=== PATIENT | male | born 1955 | race Caucasian/White ===

== ENCOUNTER 2019-10-29 14:54 | Inpatient (IN) | payer OTHER ==
[~2019-10-29] VITALS: Ht 172.7 cm; Wt 112.9 kg
[~2019-10-29 14:54] MED LIST: ASPI-496 PO; BACL-19 PO; BIMA2.5D TP; CARV-39 PO; CEPH-376 PO; CHOL500045 PO; CYCL-259 PO; FIBER SUPPLEMENT PO; FOLI-17 PO; HUMALOG INSULIN PUMP; INSU100I28 SQ-INSULIN; INSULIN LISPRO SQ; LATANOPROST EACHEYE; LISI-167 PO; LISI40TA PO; MAGN400T26 PO; MORP60TA63 PO; OXYC5CAP2 PO; POLY17PO29 PO; PRAV80TA2 PO; THIA100T67 PO; TIMO5DRO5 EACHEYE
--- NOTE | 2019-10-29 15:27 | NUR ---
PT REPORTS HIGH BLOOD SUGAR. SPOUSE IN ROOM, ASSISTING W/ HX. 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 INSULIN PUMP: 1 UNIT Q DAY, 0.5 UNIT Q HS. NEW INFUSION STARTED YESTERDAY; SITE CHANGED FROM PRIOR SITE. CARDIAC MONITORING IN PROGRESS.
[2019-10-29] MEDS ORDERED: SODIUM CHLORIDE 0.9% 1,000ML IVBOLUS ONE ×4 (15:30→18:30)
[2019-10-29] MEDS ORDERED: SODIUM CHLORIDE FLUSH 10ML SYR IVF ONE (15:30)
[2019-10-29 15:36] LABS: BASOPHILS # (AUTO) 0.01 x10^3/uL (0-0.1); BASOPHILS % (AUTO) 0 % (0-1); EOSINOPHILS % (AUTO) 0 % (1-7); LYMPHOCYTES % (AUTO) 7 % (22-44); MD NO; MEAN CORPUSCULAR HEMOGLOBIN 30.8 pg (27.5-34.5); MEAN CORPUSCULAR VOLUME 93.3 fL (81-97); MEAN PLATELET VOLUME 9.8 fL (7.4-10.4); MONOCYTES # (AUTO) 0.92 x10^3/uL (0.2-0.8); MONOCYTES % (AUTO) 6 % (2-9); NEUTROPHILS # (AUTO) 14.22 x10^3/uL (1.8-6.8); NEUTROPHILS % (AUTO) 87 % (42-75); PLATELET COUNT 171 x10^3/uL (130-400); RED BLOOD COUNT 4.43 x10^6/uL (4.38-5.82); RED CELL DISTRIBUTION WIDTH 13.8 % (9.4-14.8)
[2019-10-29 15:38] LABS: PH, VENOUS 7.322 pH (7.320-7.420)
[2019-10-29 15:52] LABS: CHLORIDE 97 mmol/L (98-107)
--- NOTE | 2019-10-29 15:55 | NUR ---
GELY NOLEN BS FOR EXAM
[2019-10-29 16:26] LABS: ALANINE AMINOTRANSFERASE 16 U/L (12-78); ALBUMIN 3.3 g/dL (3.4-5.0); ALKALINE PHOSPHATASE 85 U/L (45-117); ANION GAP 9 mmol/L (5-15); CALCIUM 8.7 mg/dL (8.5-10.1); CREATININE 3.14 mg/dL (0.7-1.3)
[2019-10-29] MEDS ORDERED: MORPHINE SULFATE 4 MG/ML, 1ML IVPush PRN (16:30)
[2019-10-29] MEDS ORDERED: ONDANSETRON 2MG/ML, 2ML IVPush ONE (16:30)
[2019-10-29] MEDS ORDERED: INSULIN REGULAR 100 UNITS/ML, 3ML VIAL IVPush ONE (16:30)
--- NOTE | 2019-10-29 16:30 | NUR ---
URINAL PROVIDED TO PT.
[2019-10-29] MEDS ORDERED: ONDANSETRON 2MG/ML, 2ML ONE (16:31)
[2019-10-29] MEDS ORDERED: MORPHINE SULFATE 4 MG/ML, 1ML ONE (16:32)
[2019-10-29] MEDS ORDERED: INSULIN SINGLE DOSE, ER ONE (16:34)
--- NOTE | 2019-10-29 17:04 | NUR ---
PT STILL ATTEMPTING TO URINATE
--- NOTE | 2019-10-29 17:19 | NUR ---
2N LITER NS HUNG; IV SITE PATENT. HUMULIN GIVEN PER EMAR. PT DENIES NAUSEA AND PAIN; ZOFRAN AND MORPHINE HELD FOR NOW. PT STILL UNABLE TO PROVIDE URINE SPECIMEN; DR PLATA AWARE.
--- NOTE | 2019-10-29 17:25 | NUR ---
Jose Guadalupe nj in [facility] - 10/29/19 at 1727 by YUKO IMPRESSION: RIGHT BASAL OPACITY CONSISTENT WITH PNEUMONIA OR ATELECTASIS.
--- NOTE | 2019-10-29 17:27 | NUR ---
PT REPORT TO BREAK RN. PT CARE TRANSFERRED.
[2019-10-29 17:31] LABS: ACETONE, SERUM Negative (Negative)
[2019-10-29] MEDS ORDERED: CEFTRIAXONE PMX 1GM/50ML 50 ML IV ONE (18:00)
--- NOTE | 2019-10-29 18:04 | NUR ---
PT REPORT FROM LAURA CROSS RN. PT CARE RESUMED. PER [place] PT REFUSING STRAIGHT CATH FOR URINE SPECIMEN AND DR PLATA IS AWARE.
[2019-10-29] MEDS ORDERED: INSU1CAR16 TP (18:09)
[2019-10-29] MEDS ORDERED: ONDANSETRON 2MG/ML, 2ML IV PRN (18:30)
[2019-10-29] MEDS ORDERED: NOREPINEPHRINE 8 MG in SODIUM CHLORIDE 0.9% 242 ML IV PRN (18:30)
[2019-10-29] MEDS ORDERED: PHARMACY MAY ADJ FOR RENAL FX MC PRN (18:30)
[2019-10-29] MEDS ORDERED: ACETAMINOPHEN 325 MG TABLET PO PRN (18:30)
--- NOTE | 2019-10-29 18:34 | NUR ---
MUSEUM TECHNICIAN NOTIFIED OF PT BP. PT TO BE MOVED TO TRAUMA 03
--- NOTE | 2019-10-29 18:36 | NUR ---
TEST ENGINEERING MANAGER: PT MOVED TO 03
--- NOTE | 2019-10-29 18:48 | NUR ---
CENTRAL LINE SET-UP AND DR CHANEY AT .
--- NOTE | 2019-10-29 18:49 | NUR ---
PROCEDURE STARTED PER DR CHANEY
--- NOTE | 2019-10-29 19:05 | NUR ---
BRENDA Vargsa RN AT TO ASSUME CARE
--- NOTE | 2019-10-29 19:09 | NUR ---
PT REPORT PROVIDED TO DANIEL GUTIERREZ
[2019-10-29 19:10] LABS: ANION GAP 10 mmol/L (5-15); CALCIUM 8.2 mg/dL (8.5-10.1); CHLORIDE 106 mmol/L (98-107); CREATININE 2.85 mg/dL (0.7-1.3)
--- NOTE | 2019-10-29 19:10 | NUR ---
CENTRAL LINE OKAYED TO USE PER DR CHANEY
[2019-10-29] MEDS ORDERED: CEFTRIAXONE PMX 1GM/50ML 50 ML ONE (19:13)
--- NOTE | 2019-10-29 19:15 | NUR ---
BLD CX BAND ON WRIST
--- NOTE | 2019-10-29 19:23 | NUR ---
ASSUMED CARE OF PATIENT.
--- NOTE | 2019-10-29 19:27 | NUR ---
CALLED PM HOSPITALIST; LEFT MESSAGE FOR DR BART Villa/ BASIC PT INFORMATION & REQUESTED RETURN CALL.
--- NOTE | 2019-10-29 19:28 | NUR ---
DR ARRIAGA AT PT BS
[2019-10-29] MEDS ORDERED: PIPERACILLIN/TAZO/PMX 3.375GM 50 ML ONE (19:55)
[2019-10-29 20:07] LABS: MICROSCOPIC INDICATED
--- NOTE | 2019-10-29 20:10 | NUR ---
3RD BOLUS STILL RUNNING PT DROWSY BUT TALKING. PT IS A&O X4. VS STABLE. DO ALL OPERATOR ON. SINUS PUMA NOTED. WILL CONTINUE TO MONITOR.
--- NOTE | 2019-10-29 20:12 | NUR ---
SPOKE WITH DR ARRIAGA ABOUT SEPSIS PROTOCOL. NO SOURCE OF INFECTION AT THIS TIME. UA HAS BEEN SENT.
[2019-10-29] MEDS: PIPERACILLIN/TAZO/PMX 4.5GM 100 ML IVPB SCH (20:17)
[2019-10-29] MEDS ORDERED: DEXTROSE 50%, 50ML SYRINGE IVPush PRN (20:30)
[2019-10-29] MEDS ORDERED: GLUCAGON 1 MG IM PRN (20:30)
[2019-10-29] MEDS ORDERED: DEXTROSE 4 GM TAB.CHEW PO PRN (20:30)
[2019-10-29] MEDS ORDERED: SODIUM CHLORIDE 0.9% 1,000 ML IV SCH (20:46)
--- NOTE | 2019-10-29 20:54 | NUR ---
PT TRANSFERRED TO CCU
[2019-10-29] MEDS ORDERED: INSULIN LISPRO 100 UNITS/ML, PEN SQ-INSULIN SCH ×3 (21:00)
[2019-10-29] MEDS: SODIUM CHLORIDE FLUSH 10ML SYR IVF SCH (21:29)
[2019-10-29] MEDS: INSULIN LISPRO 100 UNITS/ML, PEN SQ-INSULIN SCH (21:30)
[2019-10-29] MEDS: FAMOTIDINE 20 MG TABLET PO SCH (21:33)
[2019-10-29] MEDS: PRAVASTATIN 40 MG TABLET PO SCH (21:33)
[2019-10-29] MEDS: HEPARIN 5,000 UNITS/ML, 1ML SQ SCH (21:34)
[2019-10-29 23:59] LABS: ANION GAP 6 mmol/L (5-15); CALCIUM 7.9 mg/dL (8.5-10.1); CHLORIDE 107 mmol/L (98-107)
[2019-10-30] VITALS: BP 119/62
[2019-10-30] MEDS: PIPERACILLIN/TAZO/PMX 4.5GM 100 ML IVPB SCH ×4 (03:37→20:21)
[2019-10-30 04:00] VITALS: BP 103/51
[2019-10-30 04:25] LABS: BASOPHILS # (AUTO) 0.02 x10^3/uL (0-0.1); BASOPHILS % (AUTO) 0 % (0-1); EOSINOPHILS # (AUTO) 0.01 x10^3/uL (0-0.4); EOSINOPHILS % (AUTO) 0 % (1-7); LYMPHOCYTES # (AUTO) 1.53 x10^3/uL (1-3.4); LYMPHOCYTES % (AUTO) 13 % (22-44); MD NO; MEAN CORPUSCULAR HEMOGLOBIN 30.3 pg (27.5-34.5); MEAN CORPUSCULAR HGB CONC 32.6 g/dL (33.2-36.2); MEAN PLATELET VOLUME 9.4 fL (7.4-10.4); MONOCYTES # (AUTO) 0.92 x10^3/uL (0.2-0.8); MONOCYTES % (AUTO) 8 % (2-9); NEUTROPHILS % (AUTO) 79 % (42-75); PLATELET COUNT 159 x10^3/uL (130-400); RED BLOOD COUNT 4.02 x10^6/uL (4.38-5.82); RED CELL DISTRIBUTION WIDTH 13.7 % (9.4-14.8)
[2019-10-30 04:30] LABS: ANION GAP 8 mmol/L (5-15); CALCIUM 7.8 mg/dL (8.5-10.1); CHLORIDE 107 mmol/L (98-107)
[2019-10-30] MEDS: HEPARIN 5,000 UNITS/ML, 1ML SQ SCH ×3 (05:46→20:33)
[2019-10-30] MEDS: INSULIN LISPRO 100 UNITS/ML, PEN SQ-INSULIN SCH ×4 (09:03→20:34)
[2019-10-30] MEDS: ASPIRIN 81 MG TABLET EC PO SCH (09:09)
[2019-10-30] MEDS: SODIUM CHLORIDE FLUSH 10ML SYR IVF SCH ×2 (09:09→20:32)
[2019-10-30] MEDS ORDERED: SODIUM CHLORIDE 0.9% 1,000 ML IV SCH ×2 (12:30→20:46)
[2019-10-30 18:29] VITALS: BP 146/78
[2019-10-30] MEDS: FAMOTIDINE 20 MG TABLET PO SCH (20:33)
[2019-10-30] MEDS: PRAVASTATIN 40 MG TABLET PO SCH (20:33)
[2019-10-30 22:31] LABS: ANION GAP 8 mmol/L (5-15); CALCIUM 8.4 mg/dL (8.5-10.1); CHLORIDE 107 mmol/L (98-107); CREATININE 1.41 mg/dL (0.7-1.3)
[2019-10-31 00:32] VITALS: BP 174/92
[2019-10-31] MEDS: PIPERACILLIN/TAZO/PMX 4.5GM 100 ML IVPB SCH ×4 (01:55→21:29)
[2019-10-31] MEDS: HEPARIN 5,000 UNITS/ML, 1ML SQ SCH ×3 (05:40→23:08)
[2019-10-31 06:25] LABS: BASOPHILS % (AUTO) 0 % (0-1); EOSINOPHILS % (AUTO) 0 % (1-7); LYMPHOCYTES # (AUTO) 0.74 x10^3/uL (1-3.4); LYMPHOCYTES % (AUTO) 6 % (22-44); MD NO; MEAN CORPUSCULAR HGB CONC 32.5 g/dL (33.2-36.2); MEAN CORPUSCULAR VOLUME 92.3 fL (81-97); MEAN PLATELET VOLUME 9.5 fL (7.4-10.4); MONOCYTES # (AUTO) 0.51 x10^3/uL (0.2-0.8); MONOCYTES % (AUTO) 4 % (2-9); NEUTROPHILS # (AUTO) 12.25 x10^3/uL (1.8-6.8); NEUTROPHILS % (AUTO) 91 % (42-75); PLATELET COUNT 190 x10^3/uL (130-400); RED BLOOD COUNT 4.18 x10^6/uL (4.38-5.82); RED CELL DISTRIBUTION WIDTH 13.7 % (9.4-14.8)
[2019-10-31 06:36] LABS: ALBUMIN 3.1 g/dL (3.4-5.0); CALCIUM 8.7 mg/dL (8.5-10.1); CHLORIDE 104 mmol/L (98-107)
[2019-10-31 06:42] LABS: ALANINE AMINOTRANSFERASE 17 U/L (12-78); ALKALINE PHOSPHATASE 83 U/L (45-117); ANION GAP 13 mmol/L (5-15); BILIRUBIN,TOTAL 1.1 mg/dL (0.2-1.0); TOTAL PROTEIN 6.7 g/dL (6.4-8.2)
[2019-10-31] MEDS: INSULIN LISPRO 100 UNITS/ML, PEN SQ-INSULIN SCH ×4 (07:00→23:12)
[2019-10-31] MEDS ORDERED: INSULIN LISPRO 100 UNITS/ML, PEN SQ-INSULIN ONE (07:30)
[2019-10-31] MEDS ORDERED: INSULIN LISPRO 100 UNIT/ML, 3ML VIAL SQ-INSULIN ONE (07:30)
[2019-10-31] MEDS: ASPIRIN 81 MG TABLET EC PO SCH (07:32)
[2019-10-31 07:49] VITALS: BP 161/93
[2019-10-31] MEDS: SODIUM CHLORIDE FLUSH 10ML SYR IVF SCH ×2 (09:00→23:11)
[2019-10-31 13:35] VITALS: BP 158/86
[2019-10-31 15:23] LABS: ANION GAP 9 mmol/L (5-15); CALCIUM 9.4 mg/dL (8.5-10.1); CHLORIDE 107 mmol/L (98-107); CREATININE 1.14 mg/dL (0.7-1.3)
[2019-10-31] MEDS ORDERED: BACLOFEN 10 MG TABLET PO PRN (15:30)
[2019-10-31] MEDS: OXYcodone IR 5MG TABLET PO SCH ×2 (16:09→23:09)
[2019-10-31 20:19] VITALS: BP 156/92
[2019-10-31] MEDS ORDERED: morphine SULFATE 60 MG TABLET.ER PO SCH (21:00)
[2019-10-31] MEDS: PRAVASTATIN 40 MG TABLET PO SCH (23:08)
[2019-10-31] MEDS: FAMOTIDINE 20 MG TABLET PO SCH (23:08)
[2019-10-31] MEDS: CARVEDILOL 25 MG TABLET PO SCH (23:11)
[2019-11-01 01:36] VITALS: BP 128/78
[2019-11-01] MEDS: PIPERACILLIN/TAZO/PMX 4.5GM 100 ML IVPB SCH ×3 (01:58→13:39)
[2019-11-01] MEDS: OXYcodone IR 5MG TABLET PO SCH ×3 (05:54→16:23)
[2019-11-01] MEDS: HEPARIN 5,000 UNITS/ML, 1ML SQ SCH ×2 (05:55→13:39)
[2019-11-01 06:01] LABS: BASOPHILS # (AUTO) 0.02 x10^3/uL (0-0.1); BASOPHILS % (AUTO) 0 % (0-1); EOSINOPHILS % (AUTO) 0 % (1-7); LYMPHOCYTES # (AUTO) 1.15 x10^3/uL (1-3.4); LYMPHOCYTES % (AUTO) 16 % (22-44); MD NO; MEAN CORPUSCULAR HEMOGLOBIN 30.3 pg (27.5-34.5); MEAN CORPUSCULAR HGB CONC 32.8 g/dL (33.2-36.2); MEAN CORPUSCULAR VOLUME 92.5 fL (81-97); MEAN PLATELET VOLUME 9.9 fL (7.4-10.4); MONOCYTES # (AUTO) 0.41 x10^3/uL (0.2-0.8); MONOCYTES % (AUTO) 6 % (2-9); NEUTROPHILS # (AUTO) 5.72 x10^3/uL (1.8-6.8); NEUTROPHILS % (AUTO) 78 % (42-75); PLATELET COUNT 177 x10^3/uL (130-400); RED BLOOD COUNT 3.78 x10^6/uL (4.38-5.82); RED CELL DISTRIBUTION WIDTH 13.7 % (9.4-14.8)
[2019-11-01 06:11] LABS: ANION GAP 11 mmol/L (5-15); CALCIUM 8.6 mg/dL (8.5-10.1); CHLORIDE 104 mmol/L (98-107)
[2019-11-01 06:13] LABS: CREATININE 0.88 mg/dL (0.7-1.3)
[2019-11-01] MEDS: INSULIN LISPRO 100 UNITS/ML, PEN SQ-INSULIN SCH ×3 (08:08→16:23)
[2019-11-01] MEDS: SODIUM CHLORIDE FLUSH 10ML SYR IVF SCH (08:09)
[2019-11-01] MEDS: ASPIRIN 81 MG TABLET EC PO SCH (08:10)
[2019-11-01] MEDS: CARVEDILOL 25 MG TABLET PO SCH (08:10)
[2019-11-01 08:14] VITALS: BP 132/75
[2019-11-01] MEDS ORDERED: LATANOPROST OPHTH 0.005%, 2.5ML EACHEYE SCH (09:00)
[2019-11-01] MEDS ORDERED: TIMOLOL OPHTH 0.5%, 5ML EACHEYE SCH (09:00)
[2019-11-01] MEDS ORDERED: CHOLECALCIFEROL 5,000u TAB PO SCH (09:00)
[2019-11-01] MEDS ORDERED: POLYETHYLENE GLYCOL 17 GM PACKET PO SCH (09:00)
[2019-11-01 13:27] VITALS: BP 144/82
[2019-11-01] MEDS ORDERED: CEFD300C37 PO (15:14)
== END 2019-11-01 18:45 | disposition home or self-care (01) | DRG 871 ==
LOC: ED 18:08 → EDIP 18:14 → ED 19:35 → CCU 20:41 → 3N 10-30 15:50
PROVIDERS: ADMIT Student in an Organized Health Care Education/Training Program; ATTEND Internal Medicine
PROC: 02HV33Z Insertion of Infusion Device into Superior Vena Cava, Percutaneous Approach (ICD-10-PCS; principal; 2019-10-29)
PROC: B548ZZA Ultrasonography of Superior Vena Cava, Guidance (ICD-10-PCS; 2019-10-29)
DX: A41.9 Sepsis, unspecified organism (principal); N17.0 Acute kidney failure with tubular necrosis; R65.21 Severe sepsis with septic shock; E87.1 Hypo-osmolality and hyponatremia; F11.20 Opioid dependence, uncomplicated; N39.0 Urinary tract infection, site not specified; D64.9 Anemia, unspecified; D69.6 Thrombocytopenia, unspecified; E10.36 Type 1 diabetes mellitus with diabetic cataract; E78.5 Hyperlipidemia, unspecified; E86.0 Dehydration; E86.1 Hypovolemia; G89.29 Other chronic pain; H40.9 Unspecified glaucoma; I10 Essential (primary) hypertension; Z96.41 Presence of insulin pump (external) (internal); E10.65 Type 1 diabetes mellitus with hyperglycemia
CPT/HCPCS: 36415; 71045; 76770; 80048; 80053; 81001; 82010; 82803; 82962; 83036; 83605; 83735; 84100; 84145; 85025; 87040; 87077; 87081; 87086; 87186; 93005; 96361; 96374; 99291; G0378; J0696; J1644; J1815; J2543; J7030; J7050

== ENCOUNTER 2019-11-02 11:45 | Emergency (ER) | payer OTHER ==
[~2019-11-02] VITALS: Ht 172.7 cm; Wt 105.8 kg
[~2019-11-02 11:45] MED LIST changes: +CEFD300C37 PO; +INSU1CAR16 TP
--- NOTE | 2019-11-02 12:22 | NUR ---
PT BLADDER SCANNED, HIGHEST AMOUNT AFTER 4 SCANS, 62CC
[2019-11-02] MEDS ORDERED: CEFTRIAXONE PMX 1GM/50ML 50 ML IV ONE (12:30)
[2019-11-02] MEDS ORDERED: SODIUM CHLORIDE 0.9% 1,000ML IVBOLUS ONE (12:30)
[2019-11-02] MEDS ORDERED: SODIUM CHLORIDE FLUSH 10ML SYR IVF ONE (12:30)
[2019-11-02 12:43] LABS: BASOPHILS # (AUTO) 0.01 x10^3/uL (0-0.1); BASOPHILS % (AUTO) 0 % (0-1); EOSINOPHILS # (AUTO) 0.04 x10^3/uL (0-0.4); EOSINOPHILS % (AUTO) 1 % (1-7); LYMPHOCYTES # (AUTO) 0.79 x10^3/uL (1-3.4); LYMPHOCYTES % (AUTO) 14 % (22-44); MD NO; MEAN CORPUSCULAR HEMOGLOBIN 30.6 pg (27.5-34.5); MEAN CORPUSCULAR HGB CONC 33.1 g/dL (33.2-36.2); MEAN CORPUSCULAR VOLUME 92.3 fL (81-97); MEAN PLATELET VOLUME 8.9 fL (7.4-10.4); MONOCYTES # (AUTO) 0.39 x10^3/uL (0.2-0.8); MONOCYTES % (AUTO) 7 % (2-9); NEUTROPHILS # (AUTO) 4.55 x10^3/uL (1.8-6.8); NEUTROPHILS % (AUTO) 79 % (42-75); PLATELET COUNT 206 x10^3/uL (130-400); RED BLOOD COUNT 4.06 x10^6/uL (4.38-5.82); RED CELL DISTRIBUTION WIDTH 13.7 % (9.4-14.8)
[2019-11-02 12:48] LABS: ALANINE AMINOTRANSFERASE 13 U/L (12-78); ANION GAP 12 mmol/L (5-15); CALCIUM 8.9 mg/dL (8.5-10.1); CHLORIDE 102 mmol/L (98-107); CREATININE 0.93 mg/dL (0.7-1.3)
[2019-11-02 12:53] LABS: ALKALINE PHOSPHATASE 67 U/L (45-117); BILIRUBIN,TOTAL 0.9 mg/dL (0.2-1.0); TOTAL PROTEIN 6.3 g/dL (6.4-8.2)
[2019-11-02] MEDS ORDERED: CEFTRIAXONE PMX 1GM/50ML 50 ML ONE (13:25)
--- NOTE | 2019-11-02 14:01 | NUR ---
ABLE TO STRAIGHT CATH PT FOR URINE SAMPLE. URINE WALKED TO LAB. PT TOLERATED PROCEDURE WELL. ORDERED ABX AND FLUIDS HUNG. PT VSS, SEE CHARTED.
[2019-11-02 14:11] LABS: MICROSCOPIC INDICATED
[2019-11-02 15:15] VITALS: BP 153/80
--- NOTE | 2019-11-02 15:18 | NUR ---
PT UP FOR RECHECK. PT RESTING CALMLY IN BED WITH NO COMPLAINTS AT THIS TIME. PT DOZING INTERMITTANTLY.
== END 2019-11-02 17:11 | disposition home or self-care (01) ==
LOC: ED 13:25
DX: R30.0 Dysuria (principal); I10 Essential (primary) hypertension; E11.9 Type 2 diabetes mellitus without complications
CPT/HCPCS: 36415; 80053; 81001; 85025; 87040; 87086; 96365; 99285; J0696; J7030

== ENCOUNTER 2020-09-23 13:53 | Outpatient (CLI) | payer MEDICARE ==
[~2020-09-23 13:53] MED LIST changes: -CYCL-259 PO; +CYCL10TA2 PO; -FOLI-17 PO; +FOLI1TAB32 PO; -LISI40TA PO; +LISI40TA9 PO; -POLY17PO29 PO; +POLY17PO50 PO
== END 2020-09-23 23:59 | disposition home or self-care (01) ==
LOC: WOUND 13:53
PROVIDERS: ATTEND Nurse Practitioner Family
DX: L02.212 Cutaneous abscess of back [any part, except buttock and flank] (principal); R21 Rash and other nonspecific skin eruption; E11.65 Type 2 diabetes mellitus with hyperglycemia; I10 Essential (primary) hypertension; E78.5 Hyperlipidemia, unspecified; M19.90 Unspecified osteoarthritis, unspecified site; G89.29 Other chronic pain; M54.9 Dorsalgia, unspecified; Z87.891 Personal history of nicotine dependence; Z79.4 Long term (current) use of insulin; Z79.82 Long term (current) use of aspirin; Z79.899 Other long term (current) drug therapy; Z98.49 Cataract extraction status, unspecified eye
CPT/HCPCS: 97597; G0463; 99205

== ENCOUNTER 2020-09-30 14:00 | Outpatient (CLI) | payer MEDICARE | END 2020-09-30 23:59 | disposition home or self-care (01) | LOC: WOUND 14:00 | PROVIDERS: ATTEND Nurse Practitioner Family | DX: L02.212 Cutaneous abscess of back [any part, except buttock and flank] (principal); E11.65 Type 2 diabetes mellitus with hyperglycemia; R21 Rash and other nonspecific skin eruption; I10 Essential (primary) hypertension; E78.5 Hyperlipidemia, unspecified; M19.90 Unspecified osteoarthritis, unspecified site; G89.29 Other chronic pain; M54.9 Dorsalgia, unspecified; Z87.891 Personal history of nicotine dependence; Z79.82 Long term (current) use of aspirin; Z79.899 Other long term (current) drug therapy; Z79.4 Long term (current) use of insulin; Z98.49 Cataract extraction status, unspecified eye | CPT/HCPCS: 97597 ==

== ENCOUNTER 2020-10-21 08:43 | Outpatient (CLI) | payer MEDICARE | END 2020-10-21 23:59 | disposition home or self-care (01) | LOC: WOUND 08:43 | PROVIDERS: ATTEND Nurse Practitioner Family | DX: L02.212 Cutaneous abscess of back [any part, except buttock and flank] (principal); R21 Rash and other nonspecific skin eruption; E11.65 Type 2 diabetes mellitus with hyperglycemia; I10 Essential (primary) hypertension; E78.5 Hyperlipidemia, unspecified; M19.90 Unspecified osteoarthritis, unspecified site; G89.29 Other chronic pain; M54.9 Dorsalgia, unspecified; Z87.891 Personal history of nicotine dependence; Z79.82 Long term (current) use of aspirin; Z79.899 Other long term (current) drug therapy; Z98.49 Cataract extraction status, unspecified eye; Z79.4 Long term (current) use of insulin | CPT/HCPCS: 99213; G0463 ==